=== PATIENT | female | born 1995 | race Two or more races ===

== ENCOUNTER 2019-12-31 12:34 | Emergency (ER) | payer BC ==
[2019-12-31 12:48] VITALS: BP 112/73; PULSE 90; BMI 26.5
[2019-12-31] MEDS ORDERED: diphenhydrAMINE HCL 25 MG CAPSULE (FP) PO ONE ×2 (14:04→14:05)
[2019-12-31 14:19] LABS: URINE APPEARANCE Clear; URINE BILIRUBIN Negative (NEGATIVE); URINE COLOR Yellow; URINE GLUCOSE (UA) Negative (NEGATIVE); URINE KETONE Negative (NEGATIVE); URINE LEUK ESTERASE 1+ (NEGATIVE); URINE NITRITE Positive (NEGATIVE); URINE PROTEIN Trace (NEGATIVE)
[2019-12-31 14:21] LABS: EPI CELLS 168 /uL (0-25.1); HYALINE CASTS 26 /uL (0-3.1); URINE RBC 34 /uL (0-23.9); URINE WBC 425 /uL (0-25.8)
[2019-12-31 14:22] LABS: URINE BACTERIA 15181 /uL (0-1359)
[2019-12-31 14:25] LABS: HCG,QUALITATIVE URINE Negative
--- NOTE | 2019-12-31 14:45 | PDOC ---
History of Present Illness - General Chief Complaint: Poison [place],Poison [place] Exposure Stated Complaint: RASH Time Seen by Provider: 12/31/19 12:52 - History of Present Illness Initial Comments: 12/31/19 14:42 24-year-old female without comorbidities presents for evaluation of poison luna. Patient states she was sitting in the grass developed a rash over the last 2 days with intense itching of bilateral arms lower extremities and in the area of her vulva. She also has dysuria x2 days Past History - Medical History Allergies/Adverse Reactions: Allergies Allergy/AdvReac Type Severity Reaction Status Date / Time No Known Allergies Allergy Verified 12/31/19 12:44 Home Medications: Ambulatory Orders Cephalexin [Keflex] 500 mg PO QID #25 capsule 12/31/19 Clobetasol Propionate [Temovate] 30 gm TP BID #1 oint...g. 12/31/19 Methylprednisolone [Medrol Dose Karel] 4 mg PO ASDIR 12/31/19 Methylprednisolone [Medrol Dose Karel] 4 mg PO ASDIR #21 tablet 12/31/19 - Reproductive History Is Patient Now?: No - Psycho-Social/Smoking History Smoking History: Current every day smoker Information on smoking cessation initiated: Yes - Substance Abuse Hx (Audit-C & DAST Scrn) How often the patient has a drink containing alcohol: Monthly or less Score: In Men: 4 or > Positive; In Women: 3 or > Positive: 1 Screen Result (Pos requires Nsg. Audit-10AR): Negative In the last yr the pt used illegal drug/Rx for NonMed reason: No Score: Yes response is considered Positive: 0 Screen Result (Positive result requires Nsg. DAST-10): Negative Review of Systems - Review of Systems Constitutional: No: Fever : Yes: Burning, Dysuria. No: Discharge Integumentary: Yes: Pruritus, Rash *Physical Exam - Vital Signs Last Vital Signs Temp Pulse Resp BP Pulse Ox 90 18 112/73 98 12/31/19 12:45 12/31/19 12:45 12/31/19 12:45 12/31/19 12:45 - Physical Exam 12/31/19 14:42 GENERAL: The patient is awake, alert, and fully oriented, in no acute distress. HEAD: Normal with no signs of trauma. EYES: sclera anicteric, conjunctiva clear. ENT: Ears normal tympanic membranes normal oropharynx clear uvula midline NECK: Normal range of motion LUNGS: Breath sounds equal, clear to auscultation bilaterally. No wheezes, and no crackles. HEART: S1 and S2 without murmur, rub or gallop. ABDOMEN: Soft, nontender, normoactive bowel sounds. No guarding, no rebound. No masses. EXTREMITIES: Normal range of motion, no edema. No clubbing or cyanosis. No cords, erythema, or tenderness. NEUROLOGICAL: Cranial nerves II through XII grossly intact. PSYCH: Normal mood, normal affect. SKIN: Warm, Dry, normal turgor, Raised wheals on the external genitalia examination was done with female nurse in the room for the entire time. Maculopapular rash bilateral upper and lower extremities diffuse appears to be healing ED Treatment Course - ADDITIONAL ORDERS Additional order review: Laboratory Results 12/31/19 14:00 Urine Color Yellow Urine Appearance Clear Urine pH 6.0 Ur Specific [place] >= 1.030 Urine Protein Trace Urine Glucose (UA) Negative Urine Ketones Negative Urine Blood 1+ H Urine Nitrite Positive Urine Bilirubin Negative Urine Urobilinogen 1.0 Ur Leukocyte Esterase 1+ H Urine WBC (Auto) 425 Urine RBC (Auto) 34 Urine Casts (Auto) 26 U Epithel Cells (Auto) 168 Urine Bacteria (Auto) 51403 Urine HCG, Qual Negative - Medications Given in the ED: ED Medications Discontinued Medications Generic Name Dose Route Start Last Admin Trade Name Freq PRN Reason Stop Dose Admin Diphenhydramine HCl 25 mg 12/31/19 14:04 12/31/19 14:04 Benadryl - PO 12/31/19 14:05 25 mg ONCE ONE Administration Medical Decision Making - Medical Decision Making 12/31/19 14:43 Keflex for UTI Medrol Dosepak and steroid cream for poison luna follow-up with dermatology as well as internal medicine I have reviewed the pathophysiology with the patient. They are in agreement with the treatment plan all questions were answered to their satisfaction. Understanding for follow-up without fail was also conveyed to the patient. Again they are in agreement. Discharge - Discharge Information Problems reviewed: Yes Clinical Impression/Diagnosis: UTI (urinary tract infection), Contact dermatitis Condition: Stable Disposition: HOME - Admission No - Additional Discharge Information Prescriptions: Cephalexin [Keflex] 500 mg PO QID #25 capsule Methylprednisolone [Medrol Dose Karel] 4 mg PO ASDIR #21 tablet Clobetasol Propionate [Temovate] 30 gm TP BID #1 oint...g. - Follow up/Referral Referrals: Eugenie Jones MD [Staff Physician] - Alise Chicas MD [Staff Physician] - - Patient Discharge Instructions Additional Instructions: Please take the Medrol Dosepak and use the steroid will anti-inflammatory cream as directed. Please take the antibiotics as directed and finish the entire course. Without fail follow-up with both dermatology and internal medicine in 1 to 2 days for further evaluation and treatment options and return to the emergency room should symptoms worsen. - Post Discharge Activity
== END 2019-12-31 14:58 | disposition home or self-care (01) ==
LOC: JERFT 12:34
DX: R21 Rash and other nonspecific skin eruption (principal); N39.0 Urinary tract infection, site not specified
CPT/HCPCS: 81003; 84703; 87086; 87186; 99283-25

== ENCOUNTER 2020-01-14 01:59 | Emergency (ER) | payer BC ==
[2020-01-14 02:20] VITALS: BP 118/78; PULSE 74; TEMP 97.9; BMI 29.2
[2020-01-14] MEDS ORDERED: OXYMETAZOLINE 0.05% NASAL SOLUTION 15 ML BOTTLE NS ONE (02:54)
--- NOTE | 2020-01-14 03:07 | PDOC ---
History of Present Illness - General Chief Complaint: Nasal Bleeding Stated Complaint: NOSEBLEED - History of Present Illness Initial Comments: 01/14/20 02:54 24yo F w/ h/o intermittent nose bleeds p/w persistent intermittent epistaxis since 1900 today. Yesterday she sneezed She was watching a movie and her nose started to bleed. She stopped the bleeding with her usual method of packing and direct pressure after 5mins, but the bleeding resumed minutes later. She applied ice to the bridge of her nose, which stopped the bleed, but it started back up after a few minutes. When she gets nosebleeds they happen periodically and occur 1x on that given day. Today, the bleed recurred multiple times, prompting a visit to the ED. She denies bleeding disorders, use of blood thinners, intranasal drug use, chronic medical conditions,trauma, surgery, or regular medications. She began her period yesterday, and she took 400mg ibuprofen yesterday and today for the cramping. She does this every month. Past History - Travel History Traveled outside of the country in the last 30 days: No Close contact w/someone who was outside of country & ill: No - Medical History Allergies/Adverse Reactions: Allergies Allergy/AdvReac Type Severity Reaction Status Date / Time No Known Allergies Allergy Verified 01/14/20 02:20 Home Medications: Ambulatory Orders Cephalexin [Keflex] 500 mg PO QID #25 capsule 12/31/19 Clobetasol Propionate [Temovate] 30 gm TP BID #1 oint...g. 12/31/19 Methylprednisolone [Medrol Dose Karel] 4 mg PO ASDIR 12/31/19 Methylprednisolone [Medrol Dose Karel] 4 mg PO ASDIR #21 tablet 12/31/19 Anemia: No Asthma: No Cardiac Disorders: No Hx Myocardial Infarction: No CVA: No COPD: No CHF: No DVT: No Dementia: No Diabetes: No Hx Glaucoma: No Dialysis: No GI Disorders: No Disorders: No HTN: No Hypercholesterolemia: No HIV: No - Surgical History Abdominal Surgery: No Appendectomy: No Cardiac Surgery: No Cholecystectomy: No Gastric Stapling: No GI Surgery: No Lung Surgery: No Neurologic Surgery: No Orthopedic Surgery: No - Family History Other Family History: FHx of epistaxis on father side - Reproductive History LMP comment: currently on period. LMP Normal: Yes Is Patient Now?: No - Psycho-Social/Smoking History Smoking Status: Yes (everyday - vape [id number]) Smoking History: Current some day smoker Have you smoked in the past 12 months: Yes Are you using electronic cigarettes/vaping?: Yes Information on smoking cessation initiated: No - Substance Abuse Hx (Audit-C & DAST Scrn) How often the patient has a drink containing alcohol: Monthly or less Number of drinks the patient has on a typical day: 1 or 2 How often the patient has six or more drinks on one occasion: Never Score: In Men: 4 or > Positive; In Women: 3 or > Positive: 1 Screen Result (Pos requires Nsg. Audit-10AR): Negative In the last yr the pt used illegal drug/Rx for NonMed reason: No Score: Yes response is considered Positive: 0 Screen Result (Positive result requires Nsg. DAST-10): Negative Review of Systems - Review of Systems Able to Perform ROS?: Yes Is the patient limited Citizen [place] proficient: No Constitutional: No: Chills, Diaphoresis, Fever HEENTM: Yes: Nose Bleeding. No: Blurred Vision, Double Vision, Ear Pain, Ear Discharge, Nose Pain, Nose Congestion, Tinnitus, Throat Swelling, Mouth Pain, Dental Problems, Difficulty Swallowing Respiratory: No: Cough, Shortness of Breath, SOB at Rest, Productive cough, Hemoptysis Cardiac (ROS): No: Chest Pain, Irregular Heart Rate, Palpitations, Chest Tightness ABD/GI: No: Diarrhea, Difficulty Swallowing, Vomiting : No: Dysuria, Discharge, Hematuria Musculoskeletal: No: Back Pain Integumentary: No: Pallor, Pruritus, Rash Neurological: No: Headache, Numbness, Weakness Endocrine: Yes: Intolerance to Heat, Increased Hunger. No: Unexplained Weight Gain, Unexplained Weight Loss Hematologic/Lymphatic: Yes: Bleeding Diathesis (intermittent nose bleeds). No: Anemia, Blood Clots, Easy Bleeding, Easy Bruising *Physical Exam - Vital Signs Last Vital Signs Temp Pulse Resp BP Pulse Ox 97.9 F 74 18 118/78 98 01/14/20 02:17 01/14/20 02:17 01/14/20 02:17 01/14/20 02:17 01/14/20 02:17 - Physical Exam General Appearance: Yes: Nourished, Appropriately Dressed, Apparent Distress. No: Disheveled, Mild Distress HEENT: positive: DEB, Normal ENT Inspection, Normal Voice, Pharynx Normal, Other (0.5cm mucosal lesion on L septum near opening to L nare. L nares is erythematous near the opening. R nare is pink, moist w/o signs of blood. ). negative: Pale Conjunctivae, Photophobia, Scleral Icterus (R), Scleral Icterus (L), Muffled/Hoarse voice, Pharyngeal Erythema, Tonsillar Exudate, Tonsillar Erythema, Nasal Congestion, Rhinorrhea Neck: positive: Trachea midline, Normal Thyroid, Supple. negative: Tender Respiratory/Chest: positive: Lungs Clear, Normal Breath Sounds. negative: Chest Tender Cardiovascular: positive: Regular Rhythm, Regular Rate, S1, S2 Gastrointestinal/Abdominal: positive: Normal Bowel Sounds, Soft Extremity: positive: Normal Capillary Refill, Normal Range of Motion. negative: Coldness Integumentary: positive: Normal Color, Dry, Warm Neurologic: positive: Alert, Normal Mood/Affect, Normal Response Medical Decision Making - Medical Decision Making 01/14/20 03:14 24yo F w/ PMH intermittent epistaxis on no meds and w/ no chronic conditions p/w persistent and intermittent nose bleeds since 1900 today. She is stable in NAD with normal skin color and a small lesion on her left nasal septum near the alae. Afrin 2sprays to each nostril + 10minutes continuous pressure successfully stopped the bleeding. Pt reports feeling better. Will d/c home w/ Afrin and new PCP referral 01/14/20 03:49 Discharge - Discharge Information Problems reviewed: Yes Clinical Impression/Diagnosis: Epistaxis not due to trauma Condition: Improved Disposition: HOME - Admission No - Follow up/Referral Referrals: [facility] [place] [facility] [Provider Group] - Patient Discharge Instructions Patient Printed Discharge Instructions: Oxymetazoline Nasal [place], DI for Nosebleed, Nosebleeds (Alternative Therapy) Additional Instructions: You came to the ED with a nosebleed. We used afrin spray to stop the bleed. We are sending you home with this spray. You may use it 2x/day. 2 sprays per nostril and hold the opening to the nostrils tightly together against the septum for 10 continuous minutes. Follow up with the doctor listed in your discharge instructions and come back to the ED if the bleeding resumes and does not stop. - Post Discharge Activity
== END 2020-01-14 04:06 | disposition home or self-care (01) ==
LOC: JER 01:59
DX: R04.0 Epistaxis (principal)
CPT/HCPCS: 99283-25

== ENCOUNTER 2020-07-22 15:40 | Emergency (ER) | payer BC, OTHER ==
[2020-07-22 15:48] VITALS: BMI 28.3
[2020-07-22 17:23] LABS: BASO % 0.2 % (0-2.0); EOS % 0.5 % (0-4.5); HEMOGLOBIN 13.2 GM/dL (10.7-15.3); LYMPH % 24.7 % (8-40); MCH 28.5 pg (25.7-33.7); MCHC 34.6 g/dl (32.0-36.0); MEAN CELL VOLUME 82.3 fl (80-96); MONO % 5.7 % (3.8-10.2); NEUT % 68.9 % (42.8-82.8); PLATELET COUNT 406 K/MM3 (134-434); RBC 4.62 M/mm3 (3.60-5.2); RDW 14.3 % (11.6-15.6); WHITE BLOOD COUNT 10.5 K/mm3 (4.0-10.0)
[2020-07-22 17:25] LABS: URINE APPEARANCE CLOUDY; URINE BILIRUBIN NEGATIVE (NEGATIVE); URINE COLOR YELLOW; URINE GLUCOSE (UA) NEGATIVE (NEGATIVE); URINE KETONE NEGATIVE (NEGATIVE); URINE LEUK ESTERASE NEGATIVE (NEGATIVE); URINE NITRITE NEGATIVE (NEGATIVE); URINE PROTEIN NEGATIVE (NEGATIVE); URINE UROBILINOGEN 0.2 mg/dL (0.2-1.0)
[2020-07-22 20:39] VITALS: BP 118/77; PULSE 83; TEMP 99.2
== END 2020-07-22 19:56 | disposition home or self-care (01) ==
LOC: JER 15:40
DX: O26.851 Spotting complicating pregnancy, first trimester (principal); Z3A.01 Less than 8 weeks gestation of pregnancy
CPT/HCPCS: 36415; 76817-TC; 81003; 84702; 85025; 86850; 86900; 86901; 87086; 99284-25

== ENCOUNTER 2020-08-26 12:32 | Emergency (ER) | payer OTHER ==
[2020-08-26 12:50] VITALS: BP 117/76; PULSE 91; TEMP 98.3; BMI 28.3
[2020-08-26 14:35] LABS: BASO % 0.4 % (0-2.0); EOS % 0.4 % (0-4.5); HEMATOCRIT 37.9 % (32.4-45.2); HEMOGLOBIN 12.7 GM/dL (10.7-15.3); LYMPH % 22.7 % (8-40); MCHC 33.5 g/dl (32.0-36.0); MEAN CELL VOLUME 83.4 fl (80-96); MEAN PLT VOLUME 7.3 fl (7.5-11.1); MONO % 3.9 % (3.8-10.2); NEUT % 72.6 % (42.8-82.8); PLATELET COUNT 361 K/MM3 (134-434); RBC 4.54 M/mm3 (3.60-5.2); RDW 14.1 % (11.6-15.6); WHITE BLOOD COUNT 8.5 K/mm3 (4.0-10.0)
[2020-08-26 14:38] LABS: EPI CELLS >36 /uL (0-25.1); HYALINE CASTS 6 /uL (0-3.1); URINE APPEARANCE CLOUDY; URINE BACTERIA 2045 /uL (0-1359); URINE BILIRUBIN NEGATIVE (NEGATIVE); URINE COLOR YELLOW; URINE GLUCOSE (UA) NEGATIVE (NEGATIVE); URINE KETONE NEGATIVE (NEGATIVE); URINE LEUK ESTERASE 2+ (NEGATIVE); URINE NITRITE NEGATIVE (NEGATIVE); URINE PROTEIN NEGATIVE (NEGATIVE); URINE RBC 15 /uL (0-23.9); URINE WBC 123 /uL (0-25.8)
[2020-08-26 14:53] LABS: CALCIUM 9.1 mg/dL (8.5-10.1)
[2020-08-26 14:54] LABS: BLOOD UREA NITROGEN 7.8 mg/dL (7-18)
[2020-08-26 14:57] LABS: CREATININE 0.6 mg/dL (0.55-1.3)
== END 2020-08-26 18:03 | disposition home or self-care (01) ==
LOC: JER 12:32 → JERFT 12:32
DX: O26.851 Spotting complicating pregnancy, first trimester (principal); Z3A.01 Less than 8 weeks gestation of pregnancy
CPT/HCPCS: 36415; 76817-TC; 80048; 81003; 84702; 85025; 87086; 87491; 87591; 99284-25

== ENCOUNTER 2020-12-22 12:36 | Emergency (ER) | payer OTHER ==
[2020-12-22 12:56] VITALS: BP 100/65; PULSE 67; TEMP 98.3; BMI 31.9
[2020-12-22 14:14] LABS: EPI CELLS >36 /uL (0-25.1); HYALINE CASTS 2 /uL (0-3.1); URINE APPEARANCE CLOUDY; URINE BACTERIA 873 /uL (0-1359); URINE BILIRUBIN NEGATIVE (NEGATIVE); URINE COLOR YELLOW; URINE GLUCOSE (UA) NEGATIVE (NEGATIVE); URINE KETONE NEGATIVE (NEGATIVE); URINE LEUK ESTERASE 2+ (NEGATIVE); URINE NITRITE NEGATIVE (NEGATIVE); URINE PROTEIN NEGATIVE (NEGATIVE); URINE RBC 17 /uL (0-23.9); URINE WBC 60 /uL (0-25.8)
== END 2020-12-22 16:21 | disposition home or self-care (01) ==
LOC: JER 12:36
DX: O26.851 Spotting complicating pregnancy, first trimester (principal); Z3A.01 Less than 8 weeks gestation of pregnancy
CPT/HCPCS: 36415; 76817-TC; 81003; 84702; 86850; 86900; 86901; 87086; 99284-25

== ENCOUNTER 2020-12-30 17:11 | Emergency (ER) | payer OTHER ==
[2020-12-30 17:25] VITALS: BP 96/63; PULSE 75; TEMP 98.3; BMI 33.0
[2020-12-30 21:37] LABS: EPI CELLS 34 /uL (0-25.1); HYALINE CASTS 1 /uL (0-3.1); URINE APPEARANCE CLOUDY; URINE BACTERIA 102 /uL (0-1359); URINE BILIRUBIN NEGATIVE (NEGATIVE); URINE COLOR ORANGE; URINE GLUCOSE (UA) NEGATIVE (NEGATIVE); URINE KETONE 1+ (NEGATIVE); URINE LEUK ESTERASE NEGATIVE (NEGATIVE); URINE NITRITE NEGATIVE (NEGATIVE); URINE PROTEIN TRACE (NEGATIVE); URINE RBC 4963 /uL (0-23.9); URINE UROBILINOGEN 0.2 mg/dL (0.2-1.0); URINE WBC 21 /uL (0-25.8)
== END 2020-12-30 22:00 | disposition home or self-care (01) ==
LOC: JER 17:11
DX: O20.0 Threatened abortion (principal); Z3A.08 8 weeks gestation of pregnancy
CPT/HCPCS: 36415; 76817-TC; 81003; 84702; 87086; 99284-25

== ENCOUNTER 2022-03-04 17:15 | Emergency (ER) | payer OTHER ==
[2022-03-04 17:27] VITALS: BP 120/80; PULSE 80; RESP 18; TEMP 98.1; BMI 26.9
[2022-03-04 18:48] LABS: BASO % 0.7 % (0-2.0); EOS % 0.8 % (0-4.5); HEMATOCRIT 36.7 % (32.4-45.2); HEMOGLOBIN 12.5 GM/dL (10.7-15.3); MCH 28.5 pg (25.7-33.7); MCHC 34.1 g/dl (32.0-36.0); MEAN CELL VOLUME 83.5 fl (80-96); MEAN PLT VOLUME 6.9 fl (7.5-11.1); MONO % 5.6 % (3.8-10.2); NEUT % 65.9 % (42.8-82.8); PLATELET COUNT 337 10^3/uL (134-434); RBC 4.39 M/mm3 (3.60-5.2); RDW 14.3 % (11.6-15.6)
[2022-03-04 19:15] LABS: EPI CELLS >36 /uL (0-25.1); HYALINE CASTS 0 /uL (0-3.1); URINE APPEARANCE CLEAR; URINE BACTERIA 2306 /uL (0-1359); URINE BILIRUBIN NEGATIVE (NEGATIVE); URINE COLOR YELLOW; URINE GLUCOSE (UA) NEGATIVE (NEGATIVE); URINE KETONE NEGATIVE (NEGATIVE); URINE LEUK ESTERASE TRACE (NEGATIVE); URINE NITRITE NEGATIVE (NEGATIVE); URINE PROTEIN NEGATIVE (NEGATIVE); URINE RBC 12 /uL (0-23.9); URINE UROBILINOGEN 0.2 mg/dL (0.2-1.0); URINE WBC 32 /uL (0-25.8)
[2022-03-04 19:16] LABS: BLOOD UREA NITROGEN 12.6 mg/dL (7-18); CALCIUM 8.8 mg/dL (8.5-10.1)
[2022-03-04 19:17] LABS: ALBUMIN 3.6 g/dl (3.4-5.0)
[2022-03-04 19:18] LABS: CREATININE 0.6 mg/dL (0.55-1.3)
[2022-03-04 19:20] LABS: BILIRUBIN,TOTAL 0.2 mg/dL (0.2-1); TOT PROT 6.9 g/dl (6.4-8.2)
== END 2022-03-04 20:36 | disposition home or self-care (01) ==
LOC: JER 17:15
DX: O20.9 Hemorrhage in early pregnancy, unspecified (principal); Z3A.01 Less than 8 weeks gestation of pregnancy
CPT/HCPCS: 36415; 76817-TC; 80053; 81003; 84702; 84703; 85025; 86850; 86900; 86901; 87086; 99284-25

== ENCOUNTER 2022-10-31 19:15 | Inpatient (IN) | payer OTHER ==
[2022-10-31] MEDS: ELECTROLYTE-148 SOLN 1,000 ML IV SCH (20:00)
[2022-10-31] MEDS ORDERED: PROMETHAZINE HCL 25 MG/1 ML VIAL IVPB ONE (20:00)
[2022-10-31] MEDS ORDERED: BUTORPHANOL TARTRATE 1 MG/ML VIAL IVPB ONE (20:00)
[2022-10-31] MEDS ORDERED: PROMETHAZINE HCL 25 MG/1 ML VIAL ONE ×2 (20:11→20:28)
[2022-10-31] MEDS ORDERED: BUTORPHANOL TARTRATE 1 MG/ML VIAL ONE ×2 (20:11→20:27)
[2022-10-31 20:19] LABS: BASO % 0.4 % (0-2.0); HEMATOCRIT 35.5 % (32.4-45.2); HEMOGLOBIN 11.5 GM/dL (10.7-15.3); LYMPH % 6.9 % (8-40); MCH 23.3 pg (25.7-33.7); MCHC 32.4 g/dl (32.0-36.0); NEUT % 90.7 % (42.8-82.8); PLATELET COUNT 480 10^3/uL (134-434); RBC 4.93 M/mm3 (3.60-5.2); RDW 15.3 % (11.6-15.6); WHITE BLOOD COUNT 14.4 K/mm3 (4.0-10.0)
[2022-10-31 20:26] LABS: INR 0.97 (0.83-1.09); PROTHROMBIN TIME (PATIENT) 11.2 SEC (9.7-13.0)
[2022-10-31 20:29] LABS: ACTIVATED PTT 29.3 SECONDS (25.2-36.5)
[2022-10-31 20:36] LABS: POTASSIUM 4.4 mmol/L (3.5-5.1)
[2022-10-31 20:37] LABS: CALCIUM 9.1 mg/dL (8.5-10.1)
[2022-10-31 20:38] LABS: BLOOD UREA NITROGEN 8.1 mg/dL (7-18)
[2022-10-31 20:41] LABS: CREATININE 0.5 mg/dL (0.55-1.3)
[2022-10-31 21:52] VITALS: BMI 31.9
[2022-10-31] MEDS ORDERED: FAMOTIDINE 20 MG/50 ML IVPB 20 MG/50 ML MG IVPB ONE ×2 (23:45→23:47)
[2022-11-01] MEDS ORDERED: FENTANYL/BUPIVACAINE/NS/PF - PCEA - 50 ML DISP.SYRIN EP ONE ×8 (00:54→22:58)
[2022-11-01] MEDS ORDERED: NALOXONE HCL 0.4 MG/ML VIAL IVPUSH PRN (02:07)
[2022-11-01] MEDS ORDERED: OXYTOCIN 30 UNITS in 0.9% NS 30 UNIT/500 ML INFUS.BAG IVPB ONE (03:26)
[2022-11-01] MEDS: OXYTOCIN 30 UNITS in 0.9% NS 30 UNIT/500 ML INFUS.BAG IVPB SCH (03:30)
[2022-11-01] MEDS: ELECTROLYTE-148 SOLN 1,000 ML IV SCH ×2 (07:00→14:34)
[2022-11-01] MEDS: FENTANYL/BUPIVACAINE/NS/PF - PCEA - 50 ML DISP.SYRIN EP SCH ×6 (08:45→23:02)
[2022-11-01] MEDS ORDERED: BUPIVACAINE HCL/PF 0.25% (2.5MG/ML) 10 ML VIAL ONE ×3 (11:35→23:33)
[2022-11-01] MEDS ORDERED: LIDO 2%/EPI 1:200000 PRESRVFRE (20 ML SDVIAL) ONE (18:43)
[2022-11-01] MEDS ORDERED: LIDOCAINE HCL 1% PRESERVATIVE FREE - 30ML VIAL ONE (20:05)
[2022-11-01] MEDS ORDERED: OXYTOCIN 20 UNITS in 0.9% NS 20 UNIT/1,000 ML INFUS.BAG IV ONE (20:05)
[2022-11-01] MEDS ORDERED: FENTANYL CITRATE/PF 50 MCG/ML VIAL ONE (20:56)
[2022-11-01] MEDS ORDERED: ONDANSETRON 4 MG/2 ML VIAL ONE (21:17)
[2022-11-01] MEDS ORDERED: METOCLOPRAMIDE HCL INJECTION 10 MG/2 ML VIAL IVPUSH PRN (21:19)
[2022-11-01] MEDS ORDERED: ONDANSETRON 4 MG/2 ML VIAL IVPUSH PRN (21:19)
[2022-11-02] MEDS ORDERED: AZITHROMYCIN IVPB 500 MG/250 ML BAG IVPB STA (00:54)
[2022-11-02] MEDS ORDERED: AZITHROMYCIN IVPB 500 MG/250 ML BAG IVPB ONE (01:06)
[2022-11-02] MEDS ORDERED: METHYLERGONOVINE MALEATE 0.2 MG/1 ML AMP IM PRN (01:07)
[2022-11-02] MEDS ORDERED: ACETAMINOPHEN 325 MG TABLET (FP) PO PRN (01:07)
[2022-11-02] MEDS ORDERED: IBUPROFEN 800 MG/8 ML IJ IVPB PRN (01:09)
[2022-11-02] MEDS ORDERED: morphine SULFATE/PF 1 MG/2 ML (2cc Syringe - QUVA) ONE (01:16)
[2022-11-02] MEDS: ELECTROLYTE-148 SOLN 1,000 ML IV SCH (01:17)
[2022-11-02] MEDS ORDERED: OXYTOCIN 20 UNITS in 0.9% NS 20 UNIT/1,000 ML INFUS.BAG IV ONE (01:18)
[2022-11-02] MEDS ORDERED: LIDO 2%/EPI 1:200000 PRESRVFRE (20 ML SDVIAL) ONE (01:18)
[2022-11-02] MEDS ORDERED: CITRIC ACID/SODIUM CITRATE 30 ML UNIT-DOSE CUP PO ONE (01:30)
[2022-11-02] MEDS ORDERED: FENTANYL CITRATE/PF 50 MCG/ML VIAL ONE ×2 (02:22→02:34)
[2022-11-02] MEDS ORDERED: KETOROLAC TROMETHAMINE 30 MG/1 ML VIAL IVPUSH PRN (02:49)
[2022-11-02] MEDS: ACETAMINOPHEN 1000 MG/100 ML BAG IVPB PRN ×2 (02:55→18:28)
[2022-11-02] MEDS: OXYTOCIN 20 UNITS in 0.9% NS 20 UNIT/1,000 ML INFUS.BAG IV SCH ×2 (05:24→16:09)
[2022-11-02] MEDS ORDERED: oxyCODONE HCL 5 MG TABLET PO PRN (13:07)
[2022-11-02 15:19] VITALS: RESP 18
[2022-11-02] MEDS: SIMETHICONE 80 MG TAB.CHEW (FP) PO PRN (22:09)
[2022-11-02] MEDS: IBUPROFEN 600 MG TABLET (FP) PO PRN (22:09)
[2022-11-03] MEDS ORDERED: BISACODYL 10 MG SUPP.RECT RC PRN (01:07)
[2022-11-03] MEDS: ELECTROLYTE-148 SOLN 500 ML IV SCH ×3 (02:59→03:00)
[2022-11-03] MEDS: OXYTOCIN 30 UNITS in 0.9% NS 30 UNIT/500 ML INFUS.BAG IVPB SCH (03:00)
[2022-11-03] MEDS: OXYTOCIN 20 UNITS in 0.9% NS 20 UNIT/1,000 ML INFUS.BAG IV SCH (03:00)
[2022-11-03] MEDS: ELECTROLYTE-148 SOLN 1,000 ML IV SCH (03:01)
[2022-11-03] MEDS: FENTANYL/BUPIVACAINE/NS/PF - PCEA - 50 ML DISP.SYRIN EP SCH ×2 (03:01→03:02)
[2022-11-03] MEDS: IBUPROFEN 600 MG TABLET (FP) PO PRN ×2 (07:49→21:05)
[2022-11-03] MEDS: SIMETHICONE 80 MG TAB.CHEW (FP) PO PRN ×2 (07:49→21:05)
[2022-11-03 10:42] LABS: BASO % 0.4 % (0-2.0); HEMATOCRIT 24.1 % (32.4-45.2); HEMOGLOBIN 7.7 GM/dL (10.7-15.3); MCH 23.8 pg (25.7-33.7); MCHC 31.9 g/dl (32.0-36.0); MEAN CELL VOLUME 74.6 fl (80-96); MEAN PLT VOLUME 8.3 fl (7.5-11.1); MONO % 4.8 % (3.8-10.2); NEUT % 71.8 % (42.8-82.8); PLATELET COUNT 346 10^3/uL (134-434); RBC 3.23 M/mm3 (3.60-5.2); RDW 15.4 % (11.6-15.6); WHITE BLOOD COUNT 9.6 K/mm3 (4.0-10.0)
[2022-11-03] MEDS ORDERED: FERROUS GLUCONATE 324 MG TAB (FP) PO SCH (16:30)
[2022-11-03] MEDS ORDERED: FERROUS SO4 325 MG TABLET (FP) PO SCH (16:30)
[2022-11-03] MEDS: FERROUS SO4 325 MG TABLET (FP) PO SCH (17:29)
[2022-11-04] MEDS: OXYTOCIN 30 UNITS in 0.9% NS 30 UNIT/500 ML INFUS.BAG IVPB SCH (01:06)
[2022-11-04] MEDS: ELECTROLYTE-148 SOLN 1,000 ML IV SCH (01:07)
[2022-11-04] MEDS: IBUPROFEN 600 MG TABLET (FP) PO PRN ×2 (08:52→19:54)
[2022-11-04] MEDS: FERROUS SO4 325 MG TABLET (FP) PO SCH (10:05)
[2022-11-04] MEDS: SIMETHICONE 80 MG TAB.CHEW (FP) PO PRN (19:54)
[2022-11-05 06:33] LABS: BASO % 0.7 % (0-2.0); EOS % 2.3 % (0-4.5); HEMATOCRIT 24.1 % (32.4-45.2); LYMPH % 33.6 % (8-40); MCH 24.6 pg (25.7-33.7); MEAN CELL VOLUME 74.6 fl (80-96); MEAN PLT VOLUME 7.9 fl (7.5-11.1); MONO % 4.9 % (3.8-10.2); NEUT % 58.5 % (42.8-82.8); PLATELET COUNT 443 10^3/uL (134-434); RBC 3.23 M/mm3 (3.60-5.2); RDW 15.9 % (11.6-15.6); WHITE BLOOD COUNT 9.3 K/mm3 (4.0-10.0)
[2022-11-05] MEDS: IBUPROFEN 600 MG TABLET (FP) PO PRN (08:59)
[2022-11-05] MEDS: FERROUS SO4 325 MG TABLET (FP) PO SCH (08:59)
[2022-11-05] MEDS: SIMETHICONE 80 MG TAB.CHEW (FP) PO PRN (08:59)
[2022-11-05 10:08] VITALS: BP 107/66; PULSE 64; TEMP 97.9
== END 2022-11-05 12:30 | disposition home or self-care (01) | DRG 540 ==
LOC: JDEL 19:15 → JLDR 19:37 → J3W 11-02 04:32
PROVIDERS: ADMIT Obstetrics & Gynecology; ATTEND Obstetrics & Gynecology
PROC: 10D00Z1 Extraction of Products of Conception, Low, Open Approach (ICD-10-PCS; principal; 2022-10-31)
PROC: 10907ZC Drainage of Amniotic Fluid, Therapeutic from Products of Conception, Via Natural or Artificial Opening (ICD-10-PCS; 2022-10-31)
DX: O62.0 Primary inadequate contractions (principal); O61.8 Other failed induction of labor; Z3A.40 40 weeks gestation of pregnancy; Z37.0 Single live birth
CPT/HCPCS: 36415; 59025; 80048; 85025; 85610; 85730; 86780; 86850; 86900; 86901; 88307-TC